=== PATIENT | female | born 1955 | race Two or more races ===

== ENCOUNTER 2018-02-04 05:22 | Inpatient (IN) | payer MEDICARE ==
[~2018-02-04] VITALS: Ht 162.6 cm; Wt 83.5 kg
--- NOTE | 2018-02-04 05:36 | NUR ---
62 YO FEMALE BIB RA FROM HOME. PATIENT IS ALERT AND ORIENTED, STATES SHE HAD 2 SYNCOPE EPISODE. PATIENT ASSISTED TO ER BED, SKIN WARM AND DRY, RESP EVEN AND UNLABORED. AWAITING ORDERS FROM PROVIDER
[2018-02-04 06:20] LABS: BASOPHILS % (AUTO) 0.6 % (0.0-2.0); HEMATOCRIT 33 % (33-45); HEMOGLOBIN 10.5 g/dL (11.5-14.8); LYMPHOCYTES # (AUTO) 2.7 /CMM (0.8-4.8); LYMPHOCYTES % (AUTO) 39.5 % (20.0-44.0); MEAN CORPUSCULAR HEMOGLOBIN 32 PG (26.0-33.0); MEAN CORPUSCULAR HGB CONC 32 g/dl (31.0-36.0); MEAN CORPUSCULAR VOLUME 99 fL (82-100); MONOCYTES # (AUTO) 0.6 /CMM (0.1-1.30); MONOCYTES % (AUTO) 8.9 % (2.0-12.0); NEUTROPHILS # (AUTO) 3.2 /CMM (1.8-8.9); PLATELET COUNT (AUTO) 159 /CMM (150-450); RDW COEFFICIENT OF VARIATION 13.1 (11.5-15.0); RED BLOOD CELL COUNT(AUTO) 3.34 MIL/uL (4.0-5.2); WHITE BLOOD COUNT (AUTO) 6.8 K/uL (4.3-11.0)
--- NOTE | 2018-02-04 06:24 | NUR ---
MD LEÓN AT BED SIDE FOR EVAL
--- NOTE | 2018-02-04 06:35 | NUR ---
PT TRANSPORTED TO CT VIA GURNEY BY [facility] TEAM
[2018-02-04 06:36] LABS: INR 2.72 (0.87-1.13)
[2018-02-04 06:38] LABS: CALCIUM, SERUM 8.2 mg/dL (8.5-10.1); CARBON DIOXIDE 23 mmol/L (21-32); CHLORIDE 108 mmol/L (98-107); CREATININE 1.5 mg/dL (0.6-1.3); GLUCOSE 83 mg/dL (74-106); POTASSIUM 4.6 mmol/L (3.5-5.1); SODIUM SERUM 141 mmol/L (136-145); UREA NITROGEN, BLOOD 28 mg/dL (7-18)
[2018-02-04 06:47] LABS: ALANINE AMINOTRANSFERASE 23 U/L (12-78); ALKALINE PHOSPHATASE 150 U/L (46-116); ASPARTATE AMINOTRANSFERASE 26 U/L (15-37); BILIRUBIN,DIRECT 0.1 mg/dL (0.0-0.2); BILIRUBIN,TOTAL 0.2 mg/dL (0.2-1.0); TOTAL PROTEIN, SERUM 6.5 g/dL (6.4-8.2); TROPONIN I < 0.017 ng/mL (0.00-0.056)
[2018-02-04] MEDS ORDERED: IV NS 0.9% 500 ML IV ONE (07:00)
[2018-02-04 07:06] LABS: APPEARANCE,URINE CLEAR (CLEAR); BILIRUBIN,URINE NEGATIVE (NEGATIVE); BLOOD, URINE NEGATIVE Ery/uL (NEGATIVE); COLOR,URINE YELLOW (YELLOW); KETONES,URINE NEGATIVE (NEGATIVE); LEUKOCYTE ESTERASE ,URINE 1+ (NEGATIVE); NITRITE, URINE NEGATIVE (NEGATIVE); PH,URINE 5.5 (5.0-8.0); PROTEIN,URINE NEGATIVE (NEGATIVE); UGLUCOSE NEGATIVE (NEGATIVE); UROBILINOGEN,URINE 0.2 EU/dL (0.2)
[2018-02-04 07:10] LABS: BACTERIA,URINE Few /HPF (None Seen); RBC,URINE 0-2 /HPF (0-2); SQUAMOUS EPITHELIAL CELL,UR 0-2 /HPF (None Seen)
[2018-02-04] MEDS ORDERED: HYDROMORPHONE 1 MG/1 ML DISP.SYRIN IV ONE (07:30)
[2018-02-04] MEDS ORDERED: HYDROMORPHONE INJ 2 MG/ML DISP.SYRIN ONE (07:41)
[2018-02-04] MEDS ORDERED: TOPI50TA PO (07:49)
[2018-02-04] MEDS ORDERED: HYDR10TA14 PO (07:49)
[2018-02-04] MEDS ORDERED: SIMV10TA6 PO (07:49)
[2018-02-04] MEDS ORDERED: TEMA30CA PO (07:49)
[2018-02-04] MEDS ORDERED: MAGN400T6 PO (07:49)
[2018-02-04] MEDS ORDERED: CITR30SO PO (07:49)
[2018-02-04] MEDS ORDERED: CHOL500052 PO (07:49)
[2018-02-04] MEDS ORDERED: POTA10TA21 PO (07:49)
[2018-02-04] MEDS ORDERED: FOLI1TAB16 PO (07:49)
[2018-02-04] MEDS ORDERED: DULO60CA45 PO (07:49)
[2018-02-04] MEDS ORDERED: SODI650T PO (07:49)
[2018-02-04] MEDS ORDERED: WARF-58 PO (07:49)
[2018-02-04] MEDS ORDERED: LEVO75TA7 PO (07:49)
[2018-02-04] MEDS ORDERED: HYDR200T81 PO (07:49)
--- NOTE | 2018-02-04 07:51 | NUR ---
MEDICATED PT ORDERED
--- NOTE | 2018-02-04 09:17 | NUR ---
TRANSPORTED PT TO TELE BED WITHOUT INCDIENT
--- NOTE | 2018-02-04 09:20 | NUR ---
TELE/RN OPENING NOTE PATIENT IS RECEIVED ON A GURNEY. ALERT AND ORIENTED X4. DENIES SOB. RESPIRATION REGULAR AND UNLABORED. DENIES PAIN. PATIENT IN NO APPARENT DISTRESS. RAC G 20 PATENT AND SALINE LOCKED. PATIENT IS GIVEN ORIENTATION ABOUT THE UNIT. PATIENT VERBALIZED UNDERSTANDING. BED LOW AND LOCKED. SIDE RAILS UP X3. CALL LIGHT WITHIN REACH. WILL CONTINUE TO MONITOR.
[2018-02-04] MEDS ORDERED: ENOXAPARIN SODIUM 40 MG/0.4 ML DISP.SYRIN SQ SCH (14:00)
[2018-02-04] MEDS ORDERED: MAG HYDROX/AL HYDROX/SIMETH 30 ML UDC PO PRN (14:00)
[2018-02-04] MEDS ORDERED: ZOLPIDEM TARTRATE 5 MG TABLET PO PRN (14:00)
[2018-02-04] MEDS ORDERED: ONDANSETRON HCL/PF 4 MG/2 ML VIAL IVP PRN (14:00)
[2018-02-04] MEDS ORDERED: MAGNESIUM HYDROXIDE 30 ML UDC PO PRN (14:00)
[2018-02-04] MEDS ORDERED: Z GUARD REMEDY 2 OZ OINT TP PRN (14:00)
[2018-02-04] MEDS ORDERED: ACETAMINOPHEN 325 MG TABLET PO PRN (14:00)
[2018-02-04] MEDS: HYDROCODONE/APAP 5/325MG 1 EACH TABLET PO PRN ×2 (14:24→19:52)
[2018-02-04] MEDS: IV NS 0.9% 1,000 ML IV PRN (14:32)
[2018-02-04] MEDS ORDERED: ALBUTEROL FS 2.5 MG/3 ML VIAL.NEB NEB PRN (15:00)
[2018-02-04 15:40] VITALS: BP 114/58
[2018-02-04] MEDS: MAGNESIUM OXIDE 400 MG TABLET PO SCH (16:35)
[2018-02-04] MEDS: DULOXETINE HCL 30 MG CAPSULE.DR PO SCH (16:35)
[2018-02-04] MEDS: HYDROCORTISONE 5 MG TABLET PO SCH (17:09)
[2018-02-04] MEDS: TOPIRAMATE 100 MG TABLET PO SCH (17:09)
[2018-02-04] MEDS: HYDROXYCHLOROQUINE 200 MG TABLET PO SCH (18:15)
--- NOTE | 2018-02-04 18:30 | NUR ---
TELE/RN CLOSING NOTE PATIENT ALERT AND ORIENTED X4. PATIENT IN ROOM AIR AND DENIES SOB. RESPIRATION REGULAR AND UNLABORED. DENIES PAIN. PATIENT IN NO APPARENT DISTRESS. TELE BOX ON AND READING 1ST DEGREE AV BLOCK WITH PAC. PATIENT IN NO APPARENT DISTRESS. RAC G 20 PATENT AND NORMAL SALINE INFUSING AT 75ML/HR. NO S/S INFILTRATION NOTED AT THE IV SITE. PATIENT CONTENT AND NOTED WITH UNSTADY GAIT. VERBAL CUES ARE GIVEN TO INCREASE SAFETY AWARENESS. BED LOW AND LOCKED. SIDE RAILS UP X3. BED ALARM ON. CALL LIGHT WITHIN REACH. WILL ENDORSE TO LIFE SKILLS COACH.
[2018-02-04] MEDS: SODIUM BICARBONATE 650 MG TABLET PO SCH (19:11)
--- NOTE | 2018-02-04 19:15 | NUR ---
TELE/RN OPENING NOTE PATIENT RECEIVED RESTING IN BED IN SEMI [place] POSITION. ALERT AND ORIENTED X4. DENIES SOB. RESPIRATION REGULAR AND UNLABORED. DENIES PAIN @ THIS TIME. ON TELE MONITORING WITH 1 DEGREE BLOCK SR WITH PAC'S-62. PATIENT IN NO APPARENT DISTRESS. CONTINENT, USES BSC. IV ACCESS TO RAC G 20 INTACT PATENT, RUNNING WITH IVF ORDERED. PATIENT IS GIVEN ORIENTATION ABOUT THE UNIT. PATIENT VERBALIZED UNDERSTANDING. BED ALARM ON FOR SAFETY. BED LOW AND LOCKED. SIDE RAILS UP X2. CALL LIGHT WITHIN REACH. WILL CONTINUE TO MONITOR.
--- NOTE | 2018-02-04 19:53 | NUR ---
PRN NORCO GIVEN PT C/O GENERALIZED BODY PAIN & WANTED TO TAKE NORCO. PRN NORCO GIVEN ORDERED. WILL REASSESS FOR EFFECTIVENESS.
[2018-02-04 20:00] VITALS: BP 127/54
[2018-02-04] MEDS: SIMVASTATIN 10 MG TABLET PO SCH (22:25)
[2018-02-05] VITALS: BP_SYST 115; BP_SYST 116; BP_SYST 118; BP_DIAS 59; BP_DIAS 61; BP_DIAS 63
[2018-02-05] MEDS: HYDROCODONE/APAP 5/325MG 1 EACH TABLET PO PRN ×2 (01:58→14:04)
--- NOTE | 2018-02-05 01:59 | NUR ---
PRN NORCO GIVEN PT C/O GENERALIZED BODY PAIN 10/05 & WANTED TO TAKE NORCO. PRN NORCO GIVEN ORDERED. WILL REASSESS FOR EFFECTIVENESS.
[2018-02-05] MEDS: IV NS 0.9% 1,000 ML IV PRN (03:30)
[2018-02-05 04:00] VITALS: BP_SYST 114; BP_SYST 118; BP_DIAS 54
--- NOTE | 2018-02-05 06:30 | NUR ---
TELE/RN CLOSING NOTE PATIENT SLEPT WELL @ NIGHT. ALERT AND ORIENTED X 4. DENIES SOB. RESPIRATION REGULAR AND UNLABORED. DENIES PAIN @ THIS TIME. ON TELE MONITORING WITH 1ST DEGREE BLOCK SR WITH PAC'S-60. PATIENT IN NO APPARENT DISTRESS. CONTINENT, USES BSC. IV ACCESS TO RAC G 20 INTACT PATENT, RUNNING WITH IVF ORDERED. BED ALARM ON FOR SAFETY. BED LOW AND LOCKED. SIDE RAILS UP X2. CALL LIGHT WITHIN REACH. WILL ENDORSE TO AM RN FOR CONTINUITY OF CARE.
[2018-02-05 06:40] LABS: BASOPHILS % (AUTO) 0.9 % (0.0-2.0); CALCIUM, SERUM 8.4 mg/dL (8.5-10.1); CREATININE 1.5 mg/dL (0.6-1.3); EOSINOPHILS % (AUTO) 4.5 % (0.0-6.0); HEMATOCRIT 32 % (33-45); HEMOGLOBIN 10.2 g/dL (11.5-14.8); LYMPHOCYTES % (AUTO) 39.1 % (20.0-44.0); MAGNESIUM 2.1 mg/dL (1.8-2.4); MEAN CORPUSCULAR HEMOGLOBIN 32 PG (26.0-33.0); MEAN CORPUSCULAR HGB CONC 32 g/dl (31.0-36.0); MEAN CORPUSCULAR VOLUME 100 fL (82-100); MONOCYTES # (AUTO) 0.5 /CMM (0.1-1.30); MONOCYTES % (AUTO) 9.6 % (2.0-12.0); NEUTROPHILS # (AUTO) 2.4 /CMM (1.8-8.9); NEUTROPHILS % (AUTO) 45.9 % (43.0-81.0); PHOSPHORUS 4.7 mg/dL (2.5-4.9); PLATELET COUNT (AUTO) 145 /CMM (150-450); POTASSIUM 4.9 mmol/L (3.5-5.1); RDW COEFFICIENT OF VARIATION 13.9 (11.5-15.0); RED BLOOD CELL COUNT(AUTO) 3.17 MIL/uL (4.0-5.2); WHITE BLOOD COUNT (AUTO) 5.2 K/uL (4.3-11.0)
[2018-02-05 06:52] LABS: THYROID STIMULATING HORMONE 2.135 uIU/mL (0.358-3.74)
[2018-02-05 07:01] LABS: INR 2.28 (0.87-1.13)
--- NOTE | 2018-02-05 07:15 | NUR ---
TABLE COVER FOLDER OPENING NOTE RECEIVED PATIENT IN BED. ALERT ORIENTED X4. ON ROOM AIR TOLERATING WELL. IN NO APPARENT DISTRESS OR DISCOMFORT AT THIS TIME. RESPIRATIONS EVEN AND UNLABORED. PATIENT ON MANUFACTURING CONTROLS ENGINEER WITH SR AT THIS TIME. AICD IN PLACE. PATIENT USES BSC FOR ELIMINATION. RIGHT AC 20 G IVC WITH FLUIDS RUNNING AT 75 ML/HR. PATENT INTACT. NO SING OF INFILTRATION OBSERVED. ABLE TO COMMUNICATE NEEDS. DENIES PAIN AND SOB AT THIS TIME. ALL NEEDS ATTENDED, KEPT CLEAN AND COMFORTABLE. SAFETY MEASURES IN PLACE, BED IN LOW LOCKED POSITION ,ALARM ON, SIDE RAILS UP X2, CALL LIGHT WITHIN EASY REACH. WILL CONTINUE TO MONITOR.
[2018-02-05 08:00] VITALS: BP 131/71
[2018-02-05] MEDS: MAGNESIUM OXIDE 400 MG TABLET PO SCH ×3 (08:17→17:51)
[2018-02-05] MEDS: HYDROXYCHLOROQUINE 200 MG TABLET PO SCH ×2 (08:17→17:51)
[2018-02-05] MEDS: LEVOTHYROXINE SODIUM 75 MCG TABLET PO SCH (08:17)
[2018-02-05] MEDS: DULOXETINE HCL 30 MG CAPSULE.DR PO SCH (08:17)
[2018-02-05] MEDS: SODIUM BICARBONATE 650 MG TABLET PO SCH ×3 (08:17→17:51)
[2018-02-05] MEDS: FOLIC ACID 1 MG TABLET PO SCH (08:17)
[2018-02-05] MEDS: TOPIRAMATE 100 MG TABLET PO SCH ×2 (08:18→17:51)
[2018-02-05] MEDS: HYDROCORTISONE 5 MG TABLET PO SCH ×2 (08:18→17:50)
--- NOTE | 2018-02-05 12:40 | NUR ---
PATIENT'S SERUMN SODIUM LEVEL IS 146. DISCUSSED WITH DR. COLEY. ORDER RECEIVED TO CONTINUE PATIENT'S HOME MEDICATIO SODIUM BICARB BUT DISCONTINUE IV FLUID 0.9% NS. ORDER READ BACK AND VERIFIED. WILL CARRY OUT AND CONTINUE TO MONITOR.
[2018-02-05 16:00] VITALS: BP 95/54
[2018-02-05] MEDS: WARFARIN SODIUM 5 MG TABLET PO SCH (17:54)
--- NOTE | 2018-02-05 19:10 | NUR ---
MS RN CLOSING NOTE PATIENT IN BED. ALERT ORIENTED X4. ON ROOM AIR TOLERATING WELL. IN NO APPARENT DISTRESS OR DISCOMFORT AT THIS TIME. RESPIRATIONS EVEN AND UNLABORED. AICD IN PLACE. PATIENT USES BSC FOR ELIMINATION. RIGHT AC 20 G IVC SL, PATENT INTACT. ABLE TO COMMUNICATE NEEDS. DENIES PAIN AND SOB AT THIS TIME. ALL NEEDS ATTENDED, ORDERS RENDERED, KEPT CLEAN AND COMFORTABLE. SAFETY MEASURES IN PLACE, BED IN LOW LOCKED POSITION ,ALARM ON, SIDE RAILS UP X2, CALL LIGHT WITHIN EASY REACH. WILL ENDORSE TO PM NURSE FOR KALI.
--- NOTE | 2018-02-05 19:22 | NUR ---
MS RN OPENING NOTE PATIENT RECEIVED RESTING IN CHAIR. ALERT AND ORIENTED X 4. DENIES SOB. RESPIRATION REGULAR AND UNLABORED. DENIES PAIN @ THIS TIME. PATIENT IN NO APPARENT DISTRESS. CONTINENT, USES BSC. IV ACCESS TO RAC G 20 INTACT PATENT, SL. PATIENT IS GIVEN ORIENTATION ABOUT THE UNIT. PATIENT VERBALIZED UNDERSTANDING. BED LOW AND LOCKED. SIDE RAILS UP X 2. CALL LIGHT WITHIN REACH. WILL CONTINUE TO MONITOR.
[2018-02-05 20:00] VITALS: BP 96/52
[2018-02-05] MEDS: SIMVASTATIN 10 MG TABLET PO SCH (21:27)
[2018-02-05] MEDS ORDERED: TEMAZEPAM 15 MG CAPSULE PO PRN (22:00)
[2018-02-06] MEDS: HYDROCODONE/APAP 5/325MG 1 EACH TABLET PO PRN ×5 (00:24→20:39)
--- NOTE | 2018-02-06 00:24 | NUR ---
PRN NORCO GIVEN PT C/O GENERALIZED BODY PAIN 11/05 & WANTED TO TAKE NORCO. PRN NORCO GIVEN ORDERED. WILL REASSESS FOR EFFECTIVENESS. VSS. HAD SNACK & TOLERATED WELL BEFORE TAKING PAIN MEDICINE.
[2018-02-06 06:20] LABS: BASOPHILS # (AUTO) 0.1 /CMM (0.0-0.2); BASOPHILS % (AUTO) 0.8 % (0.0-2.0); HEMATOCRIT 34 % (33-45); HEMOGLOBIN 10.8 g/dL (11.5-14.8); LYMPHOCYTES # (AUTO) 2.2 /CMM (0.8-4.8); LYMPHOCYTES % (AUTO) 34.7 % (20.0-44.0); MEAN CORPUSCULAR HEMOGLOBIN 32 PG (26.0-33.0); MEAN CORPUSCULAR HGB CONC 32 g/dl (31.0-36.0); MEAN CORPUSCULAR VOLUME 103 fL (82-100); MONOCYTES # (AUTO) 0.5 /CMM (0.1-1.30); MONOCYTES % (AUTO) 7.7 % (2.0-12.0); NEUTROPHILS # (AUTO) 3.5 /CMM (1.8-8.9); NEUTROPHILS % (AUTO) 53.8 % (43.0-81.0); PLATELET COUNT (AUTO) 164 /CMM (150-450); RDW COEFFICIENT OF VARIATION 13.8 (11.5-15.0); RED BLOOD CELL COUNT(AUTO) 3.34 MIL/uL (4.0-5.2); WHITE BLOOD COUNT (AUTO) 6.4 K/uL (4.3-11.0)
[2018-02-06 06:37] LABS: INR 1.92 (0.87-1.13)
[2018-02-06 06:38] LABS: ALANINE AMINOTRANSFERASE 18 U/L (12-78); ALBUMIN 3.1 g/dL (3.4-5.0); ALKALINE PHOSPHATASE 150 U/L (46-116); ASPARTATE AMINOTRANSFERASE 18 U/L (15-37); BILIRUBIN,TOTAL 0.2 mg/dL (0.2-1.0); CALCIUM, SERUM 8.4 mg/dL (8.5-10.1); CARBON DIOXIDE 25 mmol/L (21-32); CHLORIDE 110 mmol/L (98-107); CREATININE 1.4 mg/dL (0.6-1.3); GLUCOSE 76 mg/dL (74-106); MAGNESIUM 2.3 mg/dL (1.8-2.4); PHOSPHORUS 3.6 mg/dL (2.5-4.9); POTASSIUM 4.7 mmol/L (3.5-5.1); SODIUM SERUM 143 mmol/L (136-145); TOTAL PROTEIN, SERUM 6.8 g/dL (6.4-8.2); UREA NITROGEN, BLOOD 29 mg/dL (7-18)
[2018-02-06 06:42] LABS: TROPONIN I < 0.017 ng/mL (0.00-0.056)
--- NOTE | 2018-02-06 07:04 | NUR ---
PRN NORCO GIVEN PT C/O GENERALIZED BODY PAIN 11/05 & WANTED TO TAKE NORCO. PRN NORCO GIVEN ORDERED. WILL REASSESS FOR EFFECTIVENESS. VSS.
--- NOTE | 2018-02-06 07:19 | NUR ---
ms rn initial notes received patient in bed, awake, head of bed elevated, no SOB or distress noted, on room air and tolerated well. Alert and oriented x 3, verbally responsive and able to make needs known. IV intact and patent SL only. Complaint of pain and night assistant RN gave her [place]. Call light with in patient reach, will continue to monitor accordingly.
[2018-02-06 08:00] VITALS: BP 116/65
[2018-02-06] MEDS: FOLIC ACID 1 MG TABLET PO SCH (08:07)
[2018-02-06] MEDS: DULOXETINE HCL 30 MG CAPSULE.DR PO SCH (08:07)
[2018-02-06] MEDS: MAGNESIUM OXIDE 400 MG TABLET PO SCH ×3 (08:07→16:06)
[2018-02-06] MEDS: LEVOTHYROXINE SODIUM 75 MCG TABLET PO SCH (08:07)
[2018-02-06] MEDS: TOPIRAMATE 100 MG TABLET PO SCH ×2 (08:07→16:06)
[2018-02-06] MEDS: HYDROCORTISONE 5 MG TABLET PO SCH ×2 (08:09→16:06)
[2018-02-06] MEDS: HYDROXYCHLOROQUINE 200 MG TABLET PO SCH ×2 (08:09→16:06)
[2018-02-06] MEDS: SODIUM BICARBONATE 650 MG TABLET PO SCH ×3 (08:10→16:06)
--- NOTE | 2018-02-06 09:05 | NUR ---
MS RN CLOSING NOTES PATIENT HAD FALL/SLIPPED OUT OF HER BED @ 0635.KELY ORTA QUICKLY APPROACHED PT'S ROOM AFTER THE BED ALARM WENT OFF. BED ALARM WAS KEPT ON BECAUSE PT IS A & O X 4 BUT UNSTEADY & DOES NOT WANT TO CALL NURSES FOR HELP AT TIMES. PT STATED THAT IT IS HER FAULT THAT SHE TRIED TO REACH THE CALL LIGHT WAY TOO FAR WHEN IT FELL TO THE FLOOR. PATIENT ALSO STATED THAT SHE SHOULD HAVE CALLED FOR HELP INSTEAD OF TRYING HERSELF. PER PT, SHE SLIPPED OUT OF HER BED WHEN TRYING TO REACH THE CALL LIGHT LAYING ON THE FLOOR. ASSESSED THE PT, HAD C/O MILD PAIN TO LEFT ELBOW, LEFT HIP & LEFT FOOT BUT REFUSED TO GET X RAYS DONE AT THIS TIME DESPITE OF EXPLANATIONS OF RISKS & BENEFITS. ALSO REFUSED TO GET ANY INTERVENTIONS DONE @ THIS TIME. VSS,112/87,64,20,97.4,100%. PT ALSO REFUSED TO CALL ANY FAMILY MEMBER TO INFORM, STATED SHE WILL TEXT HER DAUGHTER HERSELF. NO OTHER INJURY NOTED. MD, TOBACCO PRIZER & CHARGE NURSE MADE AWARE. PT NOTED TO BE IN STABLE CONDITION, INSTRUCTED PT AGAIN NOT TO GET OUT OF BED BY HERSELF, CALL FOR HELP, VERBALIZED UNDERSTANDING.FREQUENT VISUAL CHECKS BEING DONE INCLUDING OTHER INTERVENTIONS.ENDORSED TO AM RN FOR CONTINUITY OF CARE.
[2018-02-06 16:00] VITALS: BP 98/59
[2018-02-06] MEDS: WARFARIN SODIUM 5 MG TABLET PO SCH (16:07)
--- NOTE | 2018-02-06 16:42 | NUR ---
ms rn notes Spoke to patient in regards with her medication and said that she takes baclofen 10 mg BID and vitamin D2 50,000 qd, and informed MD and per MD to verify with her pharmacy and called and per pharmacy that Dr Berumen ordered the Vitamin D 54327 qd. All orders carried out and noted.
[2018-02-06] MEDS: BACLOFEN (10 MG) 10 MG TABLET PO SCH (17:03)
--- NOTE | 2018-02-06 19:01 | NUR ---
RN INITIAL NOTES Received patient sitting up in bed, awake, head of bed elevated, no SOB or distress noted. Patient on on room air and tolerating well. Alert and oriented x 3, verbally responsive and able to make needs known. Peripheral IV infusing at 75mL/hr. Safety measures in place. Call light with in patient's reach. Bed in low, locked position. Patient stable as endorsed by the morning shift RN. Will continue to monitor accordingly.
--- NOTE | 2018-02-06 19:04 | NUR ---
MS RN CLOSING NOTES All needs provided, attended, and anticipated. Patient in stable condition at this time. Endorsed to next shift RN to continue care. Call light with in patient reach, will continue to monitor accordingly.
[2018-02-06 20:00] VITALS: BP 98/44
--- NOTE | 2018-02-06 20:40 | NUR ---
RN NOTES Patient complaining of pain on left hip and knee, 01/05, Davis 5-325mg given as ordered. Blood pressure rechecked, 102/76
[2018-02-06 20:43] VITALS: BP 102/76
[2018-02-06] MEDS: SIMVASTATIN 10 MG TABLET PO SCH (22:00)
[2018-02-07] MEDS: HYDROCODONE/APAP 5/325MG 1 EACH TABLET PO PRN ×3 (01:34→11:49)
--- NOTE | 2018-02-07 03:55 | NUR ---
RN NOTES Patient complaining of headache, Tylenol 650mg given as ordered
[2018-02-07] MEDS: IV NS 0.9% 1,000 ML IV PRN (05:42)
[2018-02-07 06:28] LABS: INR 2.7 (0.87-1.13)
[2018-02-07 06:32] LABS: BASOPHILS # (AUTO) 0.1 /CMM (0.0-0.2); BASOPHILS % (AUTO) 0.8 % (0.0-2.0); EOSINOPHILS % (AUTO) 3.1 % (0.0-6.0); HEMATOCRIT 33 % (33-45); HEMOGLOBIN 10.8 g/dL (11.5-14.8); LYMPHOCYTES # (AUTO) 2.5 /CMM (0.8-4.8); LYMPHOCYTES % (AUTO) 37.5 % (20.0-44.0); MEAN CORPUSCULAR HEMOGLOBIN 32 PG (26.0-33.0); MEAN CORPUSCULAR HGB CONC 32 g/dl (31.0-36.0); MEAN CORPUSCULAR VOLUME 100 fL (82-100); MONOCYTES # (AUTO) 0.6 /CMM (0.1-1.30); MONOCYTES % (AUTO) 8.3 % (2.0-12.0); NEUTROPHILS # (AUTO) 3.4 /CMM (1.8-8.9); NEUTROPHILS % (AUTO) 50.3 % (43.0-81.0); PLATELET COUNT (AUTO) 170 /CMM (150-450); RDW COEFFICIENT OF VARIATION 13.5 (11.5-15.0); RED BLOOD CELL COUNT(AUTO) 3.33 MIL/uL (4.0-5.2); WHITE BLOOD COUNT (AUTO) 6.8 K/uL (4.3-11.0)
[2018-02-07 06:38] LABS: CALCIUM, SERUM 8.1 mg/dL (8.5-10.1); CREATININE 1.5 mg/dL (0.6-1.3); POTASSIUM 3.9 mmol/L (3.5-5.1)
--- NOTE | 2018-02-07 06:49 | NUR ---
RN CLOSING NOTES Patient sleeping in bed as of this time. Easily arousable. Breathing even and unlabored. Not in any distress. Peripheral IV infusing at 75mL/hr. No complaints of discomfort as of this time. Safety measures in place. Call childers within reach. bed in low locked position. All needs attended to. All due medications given as ordered. Will endorse KALI to oncoming RN
--- NOTE | 2018-02-07 07:35 | NUR ---
MS RN OPENING NOTES RECEIVED PT FROM NIGHTSHIFT NURSE IN STABLE CONDITION. PT IS A/O X3. NO SOB OR ACUTE SIGNS OF DISTRESS NOTED. BREATHING IS EVEN AND UNLABORED. PT ON RA AND SATING WELL. SHE DENIES PAIN AT THIS TIME. IV TO RIGHT HAND HAND NOTED TO BE PATENT AND INTACT. NO REDNESS OR SIGNS OF INFILTRATION NOTED. PT TOLERATING NS INFUSION WELL. BED IN LOW LOCKED POSITION, SIDE RAILS UP X2, CALL LIGHT WITHIN REACH, BED ALARM ON. WILL CONTINUE TO MONITOR
[2018-02-07 08:00] VITALS: BP 129/60
[2018-02-07] MEDS ORDERED: BACL10TA PO (08:21)
[2018-02-07] MEDS ORDERED: HYDR-3972 PO (08:21)
[2018-02-07] MEDS: MAGNESIUM OXIDE 400 MG TABLET PO SCH ×2 (08:24→13:13)
[2018-02-07] MEDS: LEVOTHYROXINE SODIUM 75 MCG TABLET PO SCH (08:25)
[2018-02-07] MEDS: SODIUM BICARBONATE 650 MG TABLET PO SCH ×2 (08:25→13:13)
[2018-02-07] MEDS: TOPIRAMATE 100 MG TABLET PO SCH (08:25)
[2018-02-07] MEDS: HYDROCORTISONE 5 MG TABLET PO SCH (08:25)
[2018-02-07] MEDS: DULOXETINE HCL 30 MG CAPSULE.DR PO SCH (08:25)
[2018-02-07] MEDS: BACLOFEN (10 MG) 10 MG TABLET PO SCH (08:26)
[2018-02-07] MEDS: HYDROXYCHLOROQUINE 200 MG TABLET PO SCH (08:26)
[2018-02-07] MEDS: FOLIC ACID 1 MG TABLET PO SCH (08:26)
[2018-02-07] MEDS ORDERED: ERGOCALCIFEROL (VITAMIN D 2) 50,000 UNIT CAPSULE PO SCH (09:00)
--- NOTE | 2018-02-07 13:49 | NUR ---
MS EDGEDATA SYSTEMS MANAGER NOTES PT WAS DISCHARGED FROM FACILITY IN STABLE CONDITION. ALL NEEDS WERE MET DURING SHIFT AND ORDERS CARRIED OUT ACCORDINGLY. ALL DUE MEDS GIVEN. NO S/S OF BLEEDING NOTED THROUGHOUT SHIFT. IV WAS SUCCESSFULLY REMOVED WITH CATHETER TIP INTACT. ALL BELONGINGS ACCOUNTED FOR PRIOR TO D/C AND FORM SIGNED BY PT. PT VERBALIZED UNDERSTANDING OF D/C INSTRUCTIONS AND SIGNED ALL D/C PAPERWORK. COPIES MADE AND PLACED IN PT'S CHART. HE WAS SAFELY ESCORTED TO MAIN LOBBY AND LEFT VIA TAXI. Addendum: 02/07/18 at 1428 by ANGELES BREAUX RN PLEASE DISREGARD THIS NOTE IT WAS INTENDED FOR ANOTHER PATIENT
--- NOTE | 2018-02-07 14:28 | NUR ---
MS WIRE SPOOLER NOTES PT WAS DISCHARGED FROM FACILITY IN STABLE CONDITION. ALL NEEDS WERE MET DURING SHIFT AND ORDERS CARRIED OUT ACCORDINGLY. ALL DUE MEDS GIVEN. IV WAS SUCCESSFULLY REMOVED WITH CATHETER TIP INTACT. ALL BELONGINGS ACCOUNTED FOR PRIOR TO D/C AND FORM SIGNED BY PT. PT VERBALIZED UNDERSTANDING OF D/C INSTRUCTIONS AND SIGNED ALL D/C PAPERWORK. COPIES MADE AND PLACED IN PT'S CHART. REPORT CALLED AND GIVEN TO LYDIA THE RECEIVING RN AT [facility]. SHE WAS SAFELY TRANSFERRED FROM [facility] TO [facility] AND LEFT VIA AMBULANCE TRANSPORT
== END 2018-02-07 15:40 | DRG 73 ==
LOC: ER 05:24 → TELE 09:06 → MED 02-05 08:35
PROVIDERS: ADMIT Internal Medicine; ATTEND Internal Medicine
DX: G90.8 Other disorders of autonomic nervous system (principal); N17.0 Acute kidney failure with tubular necrosis; E27.40 Unspecified adrenocortical insufficiency; E44.1 Mild protein-calorie malnutrition; J84.9 Interstitial pulmonary disease, unspecified; I12.9 Hypertensive chronic kidney disease with stage 1 through stage 4 chronic kidney disease, or unspecified chronic kidney disease; N18.9 Chronic kidney disease, unspecified; Z95.0 Presence of cardiac pacemaker; M32.9 Systemic lupus erythematosus, unspecified; Z86.718 Personal history of other venous thrombosis and embolism; Z91.81 History of falling; Z87.891 Personal history of nicotine dependence; Z86.711 Personal history of pulmonary embolism; Z96.659 Presence of unspecified artificial knee joint; Z79.01 Long term (current) use of anticoagulants; Z79.52 Long term (current) use of systemic steroids; G62.9 Polyneuropathy, unspecified; M19.90 Unspecified osteoarthritis, unspecified site; E55.9 Vitamin D deficiency, unspecified; Z68.31 Body mass index [BMI] 31.0-31.9, adult; E66.9 Obesity, unspecified; I70.0 Atherosclerosis of aorta; K21.9 Gastro-esophageal reflux disease without esophagitis; F32.9 Major depressive disorder, single episode, unspecified; E78.5 Hyperlipidemia, unspecified; D64.9 Anemia, unspecified
CPT/HCPCS: 36415; 70450-TC; 71045-TC; 73564-TC; 80048-TC; 80053-TC; 80076-TC; 81000-TC; 82533; 83735-TC; 84100-TC; 84443-TC; 84484-TC; 85025-TC; 85610-TC; 85730-TC; 87081-TC; 87086-TC; 93307-TC; 95819-TC; 97112-TC; 97116-TC; 97530-TC; A4606; J1170; J1650; J7030; Z7610